=== PATIENT | female | born 1960 | race Caucasian/White ===

== ENCOUNTER 2018-05-14 09:00 | Inpatient (IN) | payer OTHER ==
[2018-05-14 10:08] VITALS: BMI 29.6
--- NOTE | 2018-05-14 10:19 | HP ---
CIWA Score Nausea/Vomitin Muscle Tremors: 2 Anxiety: 3 Agitation: 1-Slight > Activity Paroxysmal Sweats: 1-Minimal Palms Moist Orientation: 1-Uncertain about Date Tacttile Disturbances: 2-Mild Itch/Numbness/Burn Auditory Disturbances: 0-None Visual Disturbances: 0-None Headache: 1-Very Mild CIWA-Ar Total Score: 13 - Admission Criteria OASAS Guidelines: Admission for Medically Managed Detox: Requires at least one of the followin. CIWA greater than 12 2. Seizures within the past 24 hours 3. Delirium tremens within the past 24 hours 4. Hallucinations within the past 24 hours 5. Acute intervention needed for co occurring medical disorder 6. Acute intervention needed for co occurring psychiatric disorder 7. Severe withdrawal that cannot be handled at a lower level of care (continued vomiting, continued diarrhea, abnormal vital signs) requiring intravenous medication and/or fluids 8. Admission ROS [facility] Chief Complaint: WITHDRAWAL SYMPTOMS Allergies/Adverse Reactions: Allergies Allergy/AdvReac Type Severity Reaction Status Date / Time No Known Allergies Allergy Verified 05/14/18 10:16 History of Present Illness: 57 Y.O. WOMAN WITH AN EXTENSIVE HISTORY OF ALCOHOL DEPENDENCE IS HERE SEEKING DETOX. SHE REPORTS SHE COMPLETED DETOX ONE MONTH AGO AT [facility]. REPORTS HER LONG PERIOD OF SOBRIETY HAS BEEN 5 YEARS. SHE STATES SHE IS CURRENTLY ENROLLED AT [facility] AND WAS MEDICATED THRU 05/14/18 WITH 50MG OF METHADONE. Exam Limitations: No Limitations - Ebola screening Have you traveled outside of the country in the last 21 days: No (N) Have you had contact with anyone from an Ebola affected area: No Have you been sick,other than usual withdrawal symptoms: No Do you have a fever: No - Review of Systems Constitutional: Chills, Changes in sleep EENT: reports: Blurred Vision Respiratory: reports: Shortness of Breath Cardiac: reports: No Symptoms Reported GI: reports: Diarrhea : reports: No Symptoms Reported Musculoskeletal: reports: Back Pain, Joint Pain (Left hip pain) Integumentary: reports: No Symptoms Reported Neuro: reports: Numbness, Tingling, Tremors Endocrine: reports: No Symptoms Reported Hematology: reports: Anemia (BRAD) Psychiatric: reports: Anxious Other Systems: Reviewed and Negative Patient History - Patient Medical History Hx Anemia: Yes (BRAD) Hx Asthma: No Hx Chronic Obstructive Pulmonary Disease (COPD): No Hx Cancer: Yes (BREAST CA: IN REMISSION ) Hx Cardiac Disorders: No Hx Congestive Heart Failure: No Hx Hypertension: No Hx Hypercholesterolemia: No Hx Pacemaker: No HX Cerebrovascular Accident: No Hx Seizures: No Hx Dementia: No Hx Diabetes: No Hx Gastrointestinal Disorders: No Hx Liver Disease: Yes (Treated in 2017) Hx Genitourinary Disorders: No Hx Sexually Transmitted Disorders: No Hx Renal Disease (ESRD): No Hx Thyroid Disease: No Hx Human Immunodeficiency Virus (HIV): No (Negative ) Hx Hepatitis C: Yes (treated) Hx Depression: No Hx Suicide Attempt: No Hx Bipolar Disorder: No Hx Schizophrenia: No - Patient Surgical History Past Surgical History: Yes Hx Orthopedic Surgery: Yes (Right hip replacement: 2017) Other Surgical History: Lumpetocmy-2008 Anesthesia Reaction: No - PPD History Previous Implant?: Yes Documented Results: Negative w/o proof Implanted On Prior [facility] Admission?: Yes PPD to be Administered?: Yes - Reproductive History Patient is a Female of Child Bearing Age (11 -55 yrs old): No Last Menstrual Period: 05/14/08 Patient : No - Smoking Cessation Smoking history: Current every day smoker Have you smoked in the past 12 months: Yes Aproximately how many cigarettes per day: 4 Initiated information on smoking cessation: Yes 'Breaking Loose' booklet given: 05/14/18 - Substance & Tx. History Hx Alcohol Use: Yes Hx Substance Use: Yes Substance Use Type: Alcohol Hx Substance Use Treatment: Yes (Detox: 1 month ago ) - Substances Abused Alcohol Route: Oral Frequency: Daily Amount used: 2 pints daily Age of first use: 21 Date of Last Use: 05/13/18 Family Disease History - Family Disease History Family Disease History: CA: Mother (Uterine Ca- ) Admission Physical Exam [facility] - Vital Signs Vital Signs: Vital Signs - 24 hr 05/14/18 10:03 Temperature 97.4 F L Pulse Rate 92 H Respiratory 20 Rate Blood Pressure 148/86 - Physical General Appearance: Yes: No Apparent Distress, Nourished, Appropriately Dressed , Other (WEARS A WIG) HEENTM: Yes: Hearing grossly Normal, Normal ENT Inspection, Normocephalic, Normal Voice Respiratory: Yes: Chest Non-Tender, No Respiratory Distress, No Accessory Muscle Use, Wheezing Neck: Yes: No masses,lesions,Nodules, Trachea in good position Breast: Yes: Breast Exam Deferred Cardiology: Yes: Regular Rhythm, Regular Rate Abdominal: Yes: Normal Bowel Sounds, Non Tender Genitourinary: Yes: Other (NO complaints reported) Back: Yes: Normal Inspection Musculoskeletal: Yes: Other (USES A CANE TO AMBULATE) Extremities: Yes: Normal Capillary Refill, Normal Inspection, Normal Range of Motion, Non-Tender Neurological: Yes: Fully Oriented, Alert, Normal Mood/Affect, Normal Response Integumentary: Yes: Normal Color, Dry, Warm Lymphatic: Yes: Within Normal Limits - Diagnostic (1) Alcohol dependence with uncomplicated withdrawal Current Visit: Yes Status: Chronic (2) Opioid dependence on agonist therapy Current Visit: Yes Status: Chronic (3) Osteoporosis Current Visit: Yes Status: Chronic (4) Osteoarthritis Current Visit: Yes Status: Chronic (5) Unsteady gait Current Visit: Yes Status: Chronic (6) Neuropathy Current Visit: Yes Status: Chronic (7) Muscle cramps Current Visit: Yes Status: Chronic (8) Breast cancer, right breast Current Visit: Yes Status: Resolved (9) Alopecia Current Visit: Yes Status: Chronic (10) Iron deficiency anemia Current Visit: Yes Status: Chronic (11) Nicotine dependence Current Visit: Yes Status: Chronic (12) Status post hip replacement Current Visit: Yes Status: Resolved Qualifiers: Laterality: left Qualified Code(s): Z96.642 - Presence of left artificial hip joint Comment: REPORTS SHE IS AWAITING RIGHT HIP REPLACEMENT SX Cleared for Admission [facility] - Detox or Rehab [facility] Level of Care: Medically Managed Detox Regimen/Protocol: Librium [facility] Breath Alcohol Content Breath Alcohol Content: 0 Urine Pregancy Test - Result Urine Test Results: Negative- NO Line Present Urine Drug Screen - Results Drug Screen Negative: No Urine Drug Screen Results: OPI-Opiates, MTD-Methadone
[2018-05-14] MEDS ORDERED: P-EPHED 60MG/TRIPROLIDI 2.5MG TABLET PO PRN (10:46)
[2018-05-14] MEDS ORDERED: guaiFENesin/D-METHORPHAN HB 10 ML UNIT-DOSE CUPS PO PRN (10:46)
[2018-05-14] MEDS ORDERED: LOPERAMIDE HCL 2 MG CAPSULE PO PRN (10:46)
[2018-05-14] MEDS ORDERED: MAGNESIUM HYDROX 2400MG/30ML ORAL SUSPENSION 30 ML CUP PO PRN (10:46)
[2018-05-14] MEDS ORDERED: MENTHOL/PHENOL 1 EACH UD MM PRN (10:46)
[2018-05-14] MEDS ORDERED: ACETAMINOPHEN 325 MG TABLET (FP) PO PRN (10:46)
[2018-05-14] MEDS ORDERED: MAG HYDROX/AL HYDROX/SIMETH 30 ML UNIT-DOSE CUP PO PRN (10:46)
[2018-05-14] MEDS ORDERED: MAGNESIUM CITRATE 300 ML BOTTLE PO PRN (10:46)
[2018-05-14] MEDS: chlordiazePOXIDE HCL 25 MG CAPSULE PO PRN (13:12)
[2018-05-14] MEDS: chlordiazePOXIDE HCL 25 MG CAPSULE PO SCH ×2 (17:15→22:11)
[2018-05-14] MEDS: THIAMINE HCL 100 MG TABLET (FP) PO SCH (22:11)
[2018-05-14] MEDS: NICOTINE POLACRILEX 2 MG GUM BUC PRN (22:12)
[2018-05-14] MEDS: MELATONIN 5 MG TABLETS PO PRN (23:32)
[2018-05-15] MEDS: chlordiazePOXIDE HCL 25 MG CAPSULE PO SCH ×4 (05:59→22:07)
[2018-05-15] MEDS: NICOTINE POLACRILEX 2 MG GUM BUC PRN ×3 (06:45→14:48)
[2018-05-15] MEDS ORDERED: METHADONE HCL 10 MG TABLET PO ONE (08:32)
[2018-05-15] MEDS ORDERED: METHADONE HCL 40 MG DISPERSABLE TABLET ONE (08:41)
[2018-05-15] MEDS ORDERED: METHADONE HCL 10 MG TABLET ONE (08:41)
[2018-05-15] MEDS ORDERED: METHADONE 40 MG, METHADONE 10 MG PO ONE (08:45)
[2018-05-15] MEDS ORDERED: TRIMETHOBENZAMIDE HCL 300 MG CAPSULE PO PRN (10:09)
--- NOTE | 2018-05-15 10:12 | PN ---
S CIWA - CIWA Score Nausea/Vomitin-No Nausea/No Vomiting Muscle Tremors: 4-Moderate,w/Arms Extend Anxiety: 3 Agitation: 3 Paroxysmal Sweats: 3 Orientation: 0-Oriented Tacttile Disturbances: 0-None Auditory Disturbances: 0-None Visual Disturbances: 0-None Headache: 1-Very Mild CIWA-Ar Total Score: 14 S Progress Note (SOAP) Subjective: nausea/vomiting sweats shakes interrupted sleep tired Objective: 05/15/18 10:11 Vital Signs Temperature 97.1 F L 05/15/18 09:53 Pulse Rate 87 05/15/18 09:53 Respiratory Rate 16 05/15/18 09:53 Blood Pressure 108/55 L 05/15/18 09:53 O2 Sat by Pulse Oximetry (%) labs pending aaox3 lying in bed no acute distress Assessment: 05/15/18 10:11 withdrawal sx Plan: continue detox increase fluids labs pending tigan po prn
[2018-05-15] MEDS: PRENATAL VITAMINS W/ FOLIC ACID TABLET (FP) PO SCH (10:33)
[2018-05-15 11:02] LABS: HEMATOCRIT 27.8 % (32.4-45.2); HEMOGLOBIN 8.8 GM/dL (10.7-15.3); MCH 26.3 pg (25.7-33.7); MCHC 31.7 g/dl (32.0-36.0); MEAN PLT VOLUME 9.3 fl (7.5-11.1); PLATELET COUNT 125 K/MM3 (134-434); RBC 3.35 M/mm3 (3.60-5.2); RDW 20.4 % (11.6-15.6); WHITE BLOOD COUNT 4.3 K/mm3 (4.0-10.0)
[2018-05-15 11:21] LABS: ALK PHOS 138 U/L (45-117); ANION GAP 9 MMOL/L (8-16); BILIRUBIN,TOTAL 0.6 mg/dL (0.2-1); BLOOD UREA NITROGEN 8 mg/dL (7-18); CALCIUM 8.5 mg/dL (8.5-10.1); CHLORIDE 100 mmol/L (98-107); CO2 29 mmol/L (21-32); CREATININE 0.6 mg/dL (0.55-1.3); GLUCOSE,RANDOM 172 mg/dL (74-106); POTASSIUM 3.8 mmol/L (3.5-5.1); SGOT/AST 70 U/L (15-37); SGPT/ALT 33 U/L (13-61); SODIUM 138 mmol/L (136-145); TOT PROT 7.6 g/dl (6.4-8.2)
[2018-05-15] MEDS: chlordiazePOXIDE HCL 25 MG CAPSULE PO PRN (14:48)
--- NOTE | 2018-05-15 17:04 | EKG ---
Test Reason : Blood Pressure : / mmHG Vent. Rate : 089 BPM Atrial Rate : 089 BPM P-R Int : 148 ms QRS Dur : 088 ms QT Int : 406 ms P-R-T Axes : 052 058 038 degrees QTc Int : 493 ms NORMAL SINUS RHYTHM LEFT ATRIAL ENLARGEMENT NONSPECIFIC ST ABNORMALITY PROLONGED QT ABNORMAL ECG NO PREVIOUS ECGS AVAILABLE Confirmed by MD DEISI, DARIN ([id number]) on 05/15/2018 5:04:16 PM Referred By: Confirmed By:DARIN LIPSCOMB MD
[2018-05-15] MEDS: THIAMINE HCL 100 MG TABLET (FP) PO SCH (22:07)
[2018-05-15] MEDS: hydrOXYzine PAMOATE 50 MG CAPSULE (FP) PO PRN (22:07)
[2018-05-15] MEDS: MELATONIN 5 MG TABLETS PO PRN (22:08)
[2018-05-16] MEDS ORDERED: METHADONE HCL 10 MG TABLET ONE (04:17)
[2018-05-16] MEDS ORDERED: METHADONE HCL 40 MG DISPERSABLE TABLET ONE (04:17)
[2018-05-16] MEDS ORDERED: METHADONE HCL 40 MG DISPERSABLE TABLET PO SCH (06:00)
[2018-05-16] MEDS: chlordiazePOXIDE HCL 25 MG CAPSULE PO SCH ×2 (06:57→10:49)
[2018-05-16] MEDS: METHADONE 40 MG, METHADONE 10 MG PO SCH (06:57)
[2018-05-16] MEDS: NICOTINE POLACRILEX 2 MG GUM BUC PRN ×4 (07:00→20:36)
--- NOTE | 2018-05-16 10:00 | EKG ---
Test Reason : Blood Pressure : / mmHG Vent. Rate : 085 BPM Atrial Rate : 085 BPM P-R Int : 154 ms QRS Dur : 088 ms QT Int : 418 ms P-R-T Axes : 058 051 049 degrees QTc Int : 497 ms NORMAL SINUS RHYTHM PROLONGED QT ABNORMAL ECG WHEN COMPARED WITH ECG OF 14-MAY-2018 11:57, NO SIGNIFICANT CHANGE WAS FOUND Confirmed by CASSIDY MARTIN, DANE ([id number]) on 05/16/2018 9:59:51 AM Referred By: Confirmed By:DANE BENJAMIN MD
--- NOTE | 2018-05-16 10:25 | PN ---
S CIWA - CIWA Score Nausea/Vomitin-No Nausea/No Vomiting Muscle Tremors: 3 Anxiety: 3 Agitation: 3 Paroxysmal Sweats: 3 Orientation: 0-Oriented Tacttile Disturbances: 0-None Auditory Disturbances: 0-None Visual Disturbances: 0-None Headache: 0-None Present CIWA-Ar Total Score: 12 S Progress Note (SOAP) Subjective: agitation sweats shakes interrupted sleep Objective: 05/16/18 10:24 Vital Signs Temperature 98.2 F 05/16/18 09:26 Pulse Rate 91 H 05/16/18 09:26 Respiratory Rate 16 05/16/18 09:26 Blood Pressure 105/66 05/16/18 09:26 O2 Sat by Pulse Oximetry (%) Laboratory Tests 05/15/18 05/15/18 05/15/18 07:00 07:00 07:00 WBC 4.3 RBC 3.35 L Hgb 8.8 L Hct 27.8 L MCV 83.0 MCH 26.3 MCHC 31.7 L RDW 20.4 H Plt Count 125 L MPV 9.3 Sodium 138 Potassium 3.8 Chloride 100 Carbon Dioxide 29 Anion Gap 9 BUN 8 Creatinine 0.6 Creat Clearance w eGFR > 60 Random Glucose 172 H Calcium 8.5 Total Bilirubin 0.6 AST 70 H ALT 33 Alkaline Phosphatase 138 H Total Protein 7.6 Albumin 3.0 L RPR Titer Nonreactive aaox3 ambulating no acute distress Assessment: 05/16/18 10:24 withdrawal sx Plan: continue detox increase fluids
[2018-05-16] MEDS: PRENATAL VITAMINS W/ FOLIC ACID TABLET (FP) PO SCH (10:49)
--- NOTE | 2018-05-16 16:01 | PN ---
S Progress Note Note: pt had a glucose lab result of 172, BGM AC x one ordered and random glucose for 6am ordered for tomorrow. Pt denies of having diabetes or family h/o of diabetes. will follow up with result.
[2018-05-16] MEDS: chlordiazePOXIDE 5 MG CAPSULE PO SCH ×2 (16:57→22:04)
[2018-05-16] MEDS: THIAMINE HCL 100 MG TABLET (FP) PO SCH (22:03)
[2018-05-16] MEDS: IBUPROFEN 400 MG TABLET (FP) PO PRN (22:03)
[2018-05-16] MEDS: MELATONIN 5 MG TABLETS PO PRN (22:04)
[2018-05-16] MEDS: hydrOXYzine PAMOATE 50 MG CAPSULE (FP) PO PRN (22:04)
[2018-05-17] MEDS ORDERED: METHADONE HCL 40 MG DISPERSABLE TABLET ONE (06:13)
[2018-05-17] MEDS ORDERED: METHADONE HCL 10 MG TABLET ONE (06:13)
[2018-05-17] MEDS: METHADONE 40 MG, METHADONE 10 MG PO SCH (06:14)
[2018-05-17] MEDS: chlordiazePOXIDE 5 MG CAPSULE PO SCH ×2 (06:14→10:10)
[2018-05-17] MEDS: NICOTINE POLACRILEX 2 MG GUM BUC PRN ×3 (06:18→17:16)
[2018-05-17] MEDS: PRENATAL VITAMINS W/ FOLIC ACID TABLET (FP) PO SCH (10:10)
--- NOTE | 2018-05-17 11:04 | PN ---
[facility] Progress Note (SOAP) Subjective: feeling better little sweats Objective: 05/17/18 11:03 Vital Signs Temperature 97.7 F 05/17/18 09:16 Pulse Rate 104 H 05/17/18 09:16 Respiratory Rate 18 05/17/18 09:16 Blood Pressure 98/60 05/17/18 09:16 O2 Sat by Pulse Oximetry (%) aaox3 ambulating no acute distress Assessment: 05/17/18 11:03 mild withdrawal sx Plan: continue detox increase fluids d/c in am
--- NOTE | 2018-05-17 11:16 | PN ---
S Progress Note Note: random glucose result is 167. pt denies having diabetes or having a family history of diabetes. Pt was advised to change her diet and try less sugar or eating products with low sugar content, low carbs, increase water intake. pt in agreement.
[2018-05-17] MEDS: chlordiazePOXIDE HCL 10 MG CAPSULE PO SCH ×2 (17:13→22:14)
[2018-05-17] MEDS: THIAMINE HCL 100 MG TABLET (FP) PO SCH (22:14)
[2018-05-17] MEDS: hydrOXYzine PAMOATE 50 MG CAPSULE (FP) PO PRN (22:14)
[2018-05-17] MEDS: IBUPROFEN 400 MG TABLET (FP) PO PRN (22:15)
[2018-05-17] MEDS: MELATONIN 5 MG TABLETS PO PRN (22:15)
[2018-05-18] MEDS ORDERED: METHADONE HCL 10 MG TABLET ONE (04:43)
[2018-05-18] MEDS ORDERED: METHADONE HCL 40 MG DISPERSABLE TABLET ONE (04:43)
[2018-05-18] MEDS: chlordiazePOXIDE HCL 10 MG CAPSULE PO SCH (05:40)
[2018-05-18] MEDS: METHADONE 40 MG, METHADONE 10 MG PO SCH (05:41)
[2018-05-18 06:18] VITALS: BP 114/69; PULSE 95; TEMP 98.1
--- NOTE | 2018-05-18 09:43 | DS ---
[facility] Detox Discharge Summary Admission Date: 05/14/18 Discharge Date: 05/18/18 - History Present History: Alcohol Dependence - Physical Exam Results Vital Signs: Vital Signs Temperature 98.1 F 05/18/18 06:00 Pulse Rate 95 H 05/18/18 06:00 Respiratory Rate 18 05/18/18 06:00 Blood Pressure 114/69 05/18/18 06:00 O2 Sat by Pulse Oximetry (%) - Treatment Hospital Course: Detox Protocol Followed, Detoxed Safely, Responded well, Discharged Condition Good, Rehab Referral Accepted - Medication Discharge Medications: Ambulatory Orders NK [No Known Home Medication] 05/14/18 - Diagnosis (1) Alcohol dependence with uncomplicated withdrawal Status: Chronic (2) Alopecia Status: Chronic (3) Iron deficiency anemia Status: Chronic (4) Muscle cramps Status: Chronic (5) Neuropathy Status: Chronic (6) Nicotine dependence Status: Chronic (7) Opioid dependence on agonist therapy Status: Chronic (8) Osteoarthritis Status: Chronic (9) Osteoporosis Status: Chronic (10) Unsteady gait Status: Chronic (11) Breast cancer, right breast Status: Resolved (12) Status post hip replacement Status: Resolved Qualifiers: Laterality: left Qualified Code(s): Z96.642 - Presence of left artificial hip joint - AMA Did Patient Leave Against Medical Advice: No (declined rehab/outpatient rehab)
== END 2018-05-18 09:30 | disposition home or self-care (01) | DRG 773 ==
LOC: YASAS 09:00 → Y6N 11:22
PROVIDERS: ADMIT Neuromusculoskeletal Medicine & OMM; ATTEND Neuromusculoskeletal Medicine & OMM
PROC: HZ2ZZZZ Detoxification Services for Substance Abuse Treatment (ICD-10-PCS; principal; 2018-05-14)
DX: F10.230 Alcohol dependence with withdrawal, uncomplicated (principal); F11.20 Opioid dependence, uncomplicated; F17.210 Nicotine dependence, cigarettes, uncomplicated; D50.9 Iron deficiency anemia, unspecified; L65.9 Nonscarring hair loss, unspecified; G62.9 Polyneuropathy, unspecified; M19.90 Unspecified osteoarthritis, unspecified site; M81.0 Age-related osteoporosis without current pathological fracture; R25.2 Cramp and spasm; Z85.3 Personal history of malignant neoplasm of breast; Z96.642 Presence of left artificial hip joint; R26.81 Unsteadiness on feet
CPT/HCPCS: 36415; 80053; 82947; 82962; 85027; 86593; 93005; 93010

== ENCOUNTER 2019-02-08 15:26 | Inpatient (IN) | payer OTHER ==
[2019-02-08 18:45] VITALS: BMI 27.1
--- NOTE | 2019-02-08 20:42 | HP ---
COWS - Scale Resting Pulse: 1= [place] 81-100 Sweatin= No chills or Flushing Restless Observation: 1= Difficult to Sit Still Pupil Size: 0= Normal to Room Light Bone or Joint Aches: 4=Acute Joint/Muscle Pain Runny Nose/ Eye Tearin= None GI Upset > 30mins: 1= Stomach Cramp Tremor Observation: 0= None Yawning Observation: 0= None Anxiety or Irritability: 2=Irritable/Anxious Goose Flesh Skin: 0=Smooth Skin COWS Score: 9 CIWA Score Nausea/Vomitin-No Nausea/No Vomiting Muscle Tremors: None Anxiety: 4-Mod. Anxious/Guarded Agitation: 4-Moderately Restless Paroxysmal Sweats: No Perspiration Orientation: 1-Uncertain about Date Tacttile Disturbances: 0-None Auditory Disturbances: 0-None Visual Disturbances: 0-None Headache: 4-Moderately Severe CIWA-Ar Total Score: 13 - Admission Criteria OASAS Guidelines: Admission for Medically Managed Detox: Requires at least one of the followin. CIWA greater than 12 2. Seizures within the past 24 hours 3. Delirium tremens within the past 24 hours 4. Hallucinations within the past 24 hours 5. Acute intervention needed for co occurring medical disorder 6. Acute intervention needed for co occurring psychiatric disorder 7. Severe withdrawal that cannot be handled at a lower level of care (continued vomiting, continued diarrhea, abnormal vital signs) requiring intravenous medication and/or fluids 8. Patient presents the following: CIWA greater than 12 Admission Criteria Met: Admission criteria met Admitting History and Physical - Past Medical History ...LMP: 05/14/08 - Smoking History Smoking history: Current every day smoker Have you smoked in the past 12 months: Yes Aproximately how many cigarettes per day: 4 - Alcohol/Substance Use Hx Alcohol Use: Yes Admission ROS [facility] Chief Complaint: seeking detox from heroin and alcohol Allergies/Adverse Reactions: Allergies Allergy/AdvReac Type Severity Reaction Status Date / Time No Known Allergies Allergy Verified 02/08/19 18:36 History of Present Illness: HERE FOR ALCOHOL /HERION DETOX. CLIENT IS SELF REFERRED. SHE IS KNOWN TO THE PROGRAM. LAST HERE 04/2018. PRESENTS TODAY WITH C/O WITHDRAWAL SX'S. CLIENT REPORTS DAILY USE OF ALCOHOL AND REPORTS USING HERION APPROX 4X A WEEK. LAST USE OF HEROIN 2 DAYS AGO. LAST ALCOHOL INTAKE LAST NIGHT. HX/O MMTP BUT NO LONGER ENROLLED. DENIES IVDU, BLACKOUTS, SEIZURES, SI/HI/AVH. REPORTS LONGEST CLEAN TIME 10 YEARS. DENIES ANY SIGNIFICANT CLEAR TIME THIS PAST YEAR. LIVES ALONE, UNEMPLOYED-[employer], DENIES LEGALS Exam Limitations: Physical Impairment (AMBULATES WITH ROLLING WALKER) - Ebola screening Have you traveled outside of the country in the last 21 days: No Have you had contact with anyone from an Ebola affected area: No Have you been sick,other than usual withdrawal symptoms: No Do you have a fever: No - Review of Systems Constitutional: Malaise EENT: reports: Blurred Vision (WEARS GLASSES), Dental Problems (MISSING TEETH) Respiratory: reports: No Symptoms reported Cardiac: reports: No Symptoms Reported GI: reports: Poor Fluid Intake : reports: No Symptoms Reported Musculoskeletal: reports: Back Pain (CHRONIC), Joint Pain (LEFT HIP -CHRONIC) Integumentary: reports: No Symptoms Reported Neuro: reports: Headache, Unsteady Gait (AMBUALTES WITH ROLLING WALKER) Endocrine: reports: No Symptoms Reported Hematology: reports: Anemia Psychiatric: reports: Anxious Other Systems: Reviewed and Negative Patient History - Patient Medical History Hx Anemia: Yes (BRAD) Hx Asthma: No Hx Chronic Obstructive Pulmonary Disease (COPD): No Hx Cancer: Yes (BREAST CA: IN REMISSION ) Hx Cardiac Disorders: No Hx Congestive Heart Failure: No Hx Hypertension: No Hx Hypercholesterolemia: No Hx Pacemaker: No HX Cerebrovascular Accident: No Hx Seizures: No Hx Dementia: No Hx Diabetes: No Hx Gastrointestinal Disorders: No Hx Liver Disease: Yes (Treated in 2017) Hx Genitourinary Disorders: No Hx Sexually Transmitted Disorders: No Hx Renal Disease (ESRD): No Hx Thyroid Disease: No Hx Human Immunodeficiency Virus (HIV): No Hx Hepatitis C: Yes (treated) Hx Depression: No Hx Suicide Attempt: No Hx Bipolar Disorder: No Hx Schizophrenia: No Other Medical History: ANXIETY - Patient Surgical History Past Surgical History: Yes Hx Neurologic Surgery: No Hx Cataract Extraction: No Hx Cardiac Surgery: No Hx Lung Surgery: No Hx Breast Surgery: Yes (RIGHT BREAST CA, SURGERY X3) Hx Breast Biopsy: No Hx Abdominal Surgery: No Hx Appendectomy: No Hx Cholecystectomy: No Hx Genitourinary Surgery: No Hx Section: No Hx Orthopedic Surgery: Yes (Right hip replacement: 2017) Other Surgical History: Lumpetocmy-2009 Anesthesia Reaction: No - PPD History Previous Implant?: Yes Documented Results: Negative w/proof Implanted On Prior [facility] Admission?: Yes Date: 05/16/18 Results: 0MM PPD to be Administered?: No - Reproductive History Patient is a Female of Child Bearing Age (11 -55 yrs old): Yes Last Menstrual Period: 05/14/08 LMP comment: MENAPAUSE Patient : No - Smoking Cessation Smoking history: Current every day smoker Have you smoked in the past 12 months: Yes Aproximately how many cigarettes per day: 10 Cigars Per Day: 0 Hx Chewing Tobacco Use: No Initiated information on smoking cessation: Yes 'Breaking Loose' booklet given: 02/08/19 - Substance & Tx. History Hx Alcohol Use: Yes Hx Substance Use: Yes Substance Use Type: Alcohol, Heroin Hx Substance Use Treatment: Yes ([facility]) - Substances abused Alcohol Substance route: Oral Frequency: Daily Amount used: 1 pint Age of first use: 21 Date of last use: 02/08/19 Heroin Substance route: Inhalation Frequency: 3-6 times per week Amount used: 1 bag Age of first use: 58 Date of last use: 02/06/19 Admission Physical Exam S - Vital Signs Vital Signs: Vital Signs - 24 hr 02/08/19 18:35 Temperature 98.2 F Pulse Rate 85 Respiratory 16 Rate Blood Pressure 155/87 - Physical General Appearance: Yes: Mild Distress, Anxious HEENTM: Yes: EOMI, Normocephalic, Normal Voice, BRADEN, Pharynx Normal, Other ( MISSING TEETH) Respiratory: Yes: Chest Non-Tender, Lungs Clear, Normal Breath Sounds, No Respiratory Distress, No Accessory Muscle Use Neck: Yes: No masses,lesions,Nodules, Supple, Trachea in good position Breast: Yes: Other, Surgical Scar (RIGHT BREAST) Cardiology: Yes: Regular Rhythm, Regular Rate, S1, S2 Abdominal: Yes: Normal Bowel Sounds, Non Tender, Soft, Protuberent Genitourinary: Yes: Within Normal Limits Back: Yes: Normal Inspection Musculoskeletal: Yes: Other (AMBULATES W/ ROLLING WALKER) Extremities: Yes: Normal Range of Motion, Non-Tender Neurological: Yes: Fully Oriented, Alert, Motor Strength 5/5 Integumentary: Yes: Dry, Warm, Other (SPIDER DICK LIKE BROKEN VESSELS TO ARMS AND CHEST) Lymphatic: Yes: Within Normal Limits - Diagnostic (1) Opioid dependence with withdrawal Current Visit: Yes Status: Acute (2) Alcohol dependence with uncomplicated withdrawal Current Visit: Yes Status: Acute (3) Iron deficiency anemia Current Visit: Yes Status: Chronic (4) Neuropathy Current Visit: Yes Status: Chronic (5) Nicotine dependence Current Visit: Yes Status: Chronic Qualifiers: Nicotine product type: cigarettes Substance use status: uncomplicated Qualified Code(s): F17.210 - Nicotine dependence, cigarettes, uncomplicated (6) Osteoarthritis Current Visit: Yes Status: Chronic (7) Osteoporosis Current Visit: Yes Status: Chronic (8) Unsteady gait Current Visit: Yes Status: Chronic Cleared for Admission S - Detox or Rehab [facility] Level of Care: Medically Managed Detox Regimen/Protocol: Methadone/Librium Claeared for Rehab Admission: No Breathalyzer - Breathalyzer Breathalyzer: 0 Urine Drug Screen - Test Device Lot number: [id number] Expiration date: 09/21/20 - Control Is test valid?: Yes - Results Drug screen NEGATIVE: Yes Urine drug screen results: MOP-Opiates Inpatient Rehab Admission - Rehab Decision to Admit Inpatient rehab admission?: No
[2019-02-08] MEDS ORDERED: IBUPROFEN 400 MG TABLET (FP) PO PRN (20:46)
[2019-02-08] MEDS ORDERED: MENTHOL/PHENOL 1 EACH UD MM PRN (20:46)
[2019-02-08] MEDS ORDERED: guaiFENesin 200 MG/10 ML 10 ML UNIT-DOSE CUPS PO PRN (20:46)
[2019-02-08] MEDS ORDERED: P-EPHED 60MG/TRIPROLIDI 2.5MG TABLET PO PRN (20:46)
[2019-02-08] MEDS ORDERED: NALOXONE HCL 0.4 MG/ML VIAL IM PRN (20:46)
[2019-02-08] MEDS ORDERED: cloNIDine HCL 0.1 MG TABLET PO PRN (20:46)
[2019-02-08] MEDS ORDERED: MAGNESIUM HYDROX 2400MG/30ML ORAL SUSPENSION 30 ML CUP PO PRN (20:46)
[2019-02-08] MEDS ORDERED: BISMUTH SUBSALICYLATE 524 MG/30 ML UD PO PRN (20:46)
[2019-02-08] MEDS ORDERED: MAGNESIUM CITRATE 300 ML BOTTLE PO PRN (20:46)
[2019-02-08] MEDS ORDERED: ONDANSETRON *ODT* 4 MG TABLET SL PRN (20:46)
[2019-02-08] MEDS ORDERED: METHADONE HCL 10 MG TABLET (FOR DETOX USE ONLY) PO ONE (20:46)
[2019-02-08] MEDS ORDERED: ACETAMINOPHEN 325 MG TABLET (FP) PO PRN (20:46)
[2019-02-08] MEDS ORDERED: chlordiazePOXIDE HCL 25 MG CAPSULE PO PRN (20:46)
[2019-02-08] MEDS ORDERED: DICYCLOMINE HCL 10 MG CAPSULE PO PRN (20:46)
[2019-02-08] MEDS ORDERED: MAG HYDROX/AL HYDROX/SIMETH 30 ML UNIT-DOSE CUP PO PRN (20:46)
[2019-02-08] MEDS: FERROUS SO4 325 MG TABLET (FP) PO SCH (22:24)
[2019-02-08] MEDS: chlordiazePOXIDE HCL 25 MG CAPSULE PO SCH (22:24)
[2019-02-08] MEDS: MELATONIN 5 MG TABLETS PO PRN (22:24)
[2019-02-08] MEDS: THIAMINE HCL 100 MG TABLET (FP) PO SCH (22:25)
[2019-02-09] MEDS: ACETAMINOPHEN 325 MG TABLET (FP) PO PRN (00:48)
[2019-02-09] MEDS: METHOCARBAMOL 500 MG TABLET PO PRN ×3 (00:49→22:12)
[2019-02-09] MEDS: FERROUS SO4 325 MG TABLET (FP) PO SCH ×3 (05:57→22:10)
[2019-02-09] MEDS: chlordiazePOXIDE HCL 25 MG CAPSULE PO SCH ×4 (05:57→22:10)
[2019-02-09] MEDS: NICOTINE POLACRILEX 2 MG GUM BUC PRN ×2 (05:58→17:28)
[2019-02-09] MEDS ORDERED: METHADONE HCL 5 MG TABLET (FOR DETOX USE ONLY) PO ONE (10:00)
[2019-02-09 10:10] LABS: ALBUMIN 3.1 g/dl (3.4-5.0); BILIRUBIN,TOTAL 0.7 mg/dL (0.2-1); BLOOD UREA NITROGEN 8.1 mg/dL (7-18); CREATININE 0.6 mg/dL (0.55-1.3); POTASSIUM 3.5 mmol/L (3.5-5.1); TOT PROT 8.2 g/dl (6.4-8.2)
[2019-02-09] MEDS: PRENATAL VITAMINS W/ FOLIC ACID TABLET (FP) PO SCH (10:10)
[2019-02-09] MEDS: NICOTINE 14 MG/24 HOURS TOPICAL PATCH TD SCH (10:10)
[2019-02-09 10:38] LABS: MCH 31.2 pg (25.7-33.7); MCHC 33.5 g/dl (32.0-36.0); MEAN CELL VOLUME 93.1 fl (80-96); MEAN PLT VOLUME 10.3 fl (7.5-11.1); PLATELET COUNT 115 K/MM3 (134-434); RBC 3.86 M/mm3 (3.60-5.2); RDW 20.1 % (11.6-15.6); WHITE BLOOD COUNT 5.1 K/mm3 (4.0-10.0)
--- NOTE | 2019-02-09 12:39 | PN ---
S CIWA - CIWA Score Nausea/Vomitin-No Nausea/No Vomiting Muscle Tremors: 2 Anxiety: 3 Agitation: 0-Normal Activity Paroxysmal Sweats: 3 Orientation: 0-Oriented Tacttile Disturbances: 1-Very Mild Itch/Numbness Auditory Disturbances: 0-None Visual Disturbances: 0-None Headache: 2-Mild CIWA-Ar Total Score: 11 S COWS - Scale Resting Pulse: 0= [place] 80 or Below Sweatin= Chills/Flushing Restless Observation: 1= Difficult to Sit Still Pupil Size: 0= Normal to Room Light Bone or Joint Aches: 1= Mild Discomfort Runny Nose/ Eye Tearin= None GI Upset > 30mins: 0= None Tremor Observation of Outstretched Hands: 2= Slight Tremor Visible Yawning Observation: 1= 1-2x During Session Anxiety or Irritability: 2=Irritable/Anxious Goose Flesh Skin: 0=Smooth Skin COWS Score: 8 S Progress Note (SOAP) Subjective: c/o joint pain, anxiety, sweats, and irritability. Objective: 02/09/19 12:36 Vital Signs 02/09/19 02/09/19 02/09/19 06:00 09:47 12:34 Temperature 98.2 F 97.7 F 97.9 F Pulse Rate 84 77 90 Respiratory 18 18 18 Rate Blood Pressure 122/81 111/65 133/87 Lab Results WBC 5.1 K/mm3 (4.0-10.0) 02/09/19 08:00 RBC 3.86 M/mm3 (3.60-5.2) 02/09/19 08:00 Hgb 12.0 GM/dL (10.7-15.3) 02/09/19 08:00 Hct 36.0 % (32.4-45.2) D 02/09/19 08:00 MCV 93.1 fl (80-96) 02/09/19 08:00 MCHC 33.5 g/dl (32.0-36.0) 02/09/19 08:00 RDW 20.1 % (11.6-15.6) H 02/09/19 08:00 Plt Count 115 K/MM3 (134-434) L 02/09/19 08:00 Sodium 138 mmol/L (136-145) 02/09/19 08:00 Potassium 3.5 mmol/L (3.5-5.1) 02/09/19 08:00 Chloride 101 mmol/L (98-107) 02/09/19 08:00 Carbon Dioxide 30 mmol/L (21-32) 02/09/19 08:00 Anion Gap 7 MMOL/L (8-16) L 02/09/19 08:00 BUN 8.1 mg/dL (7-18) 02/09/19 08:00 Creatinine 0.6 mg/dL (0.55-1.3) 02/09/19 08:00 Random Glucose 150 mg/dL (74-106) H 02/09/19 08:00 Calcium 9.0 mg/dL (8.5-10.1) 02/09/19 08:00 Laboratory Last Values WBC 5.1 K/mm3 (4.0-10.0) 02/09/19 08:00 RBC 3.86 M/mm3 (3.60-5.2) 02/09/19 08:00 Hgb 12.0 GM/dL (10.7-15.3) 02/09/19 08:00 Hct 36.0 % (32.4-45.2) D 02/09/19 08:00 MCV 93.1 fl (80-96) 02/09/19 08:00 MCH 31.2 pg (25.7-33.7) D 02/09/19 08:00 MCHC 33.5 g/dl (32.0-36.0) 02/09/19 08:00 RDW 20.1 % (11.6-15.6) H 02/09/19 08:00 Plt Count 115 K/MM3 (134-434) L 02/09/19 08:00 MPV 10.3 fl (7.5-11.1) D 02/09/19 08:00 Sodium 138 mmol/L (136-145) 02/09/19 08:00 Potassium 3.5 mmol/L (3.5-5.1) 02/09/19 08:00 Chloride 101 mmol/L (98-107) 02/09/19 08:00 Carbon Dioxide 30 mmol/L (21-32) 02/09/19 08:00 Anion Gap 7 MMOL/L (8-16) L 02/09/19 08:00 BUN 8.1 mg/dL (7-18) 02/09/19 08:00 Creatinine 0.6 mg/dL (0.55-1.3) 02/09/19 08:00 Est GFR (CKD-EPI)AfAm 117.27 02/09/19 08:00 Est GFR (CKD-EPI)NonAf 101.18 02/09/19 08:00 Random Glucose 150 mg/dL (74-106) H 02/09/19 08:00 Calcium 9.0 mg/dL (8.5-10.1) 02/09/19 08:00 Total Bilirubin 0.7 mg/dL (0.2-1) 02/09/19 08:00 AST 66 U/L (15-37) H 02/09/19 08:00 ALT 42 U/L (13-61) 02/09/19 08:00 Alkaline Phosphatase 173 U/L (45-117) H 02/09/19 08:00 Total Protein 8.2 g/dl (6.4-8.2) 02/09/19 08:00 Albumin 3.1 g/dl (3.4-5.0) L 02/09/19 08:00 RPR Titer Nonreactive (NONREACTIVE) 02/09/19 08:00 Labs noted with elevated Alkaline phosphatase possible due to chronic joint pain /history of CA. Assessment: 02/09/19 12:39 AOX3, in no acute respiratory distress. Full ROM, ambulating in the unit. Withdrawal symptoms. Plan: continue detox.
--- NOTE | 2019-02-09 14:57 | CONSULT ---
[facility] Psychiatric Consult - Data Date of interview: 02/09/19 Admission source: [facility] Identifying data: Readmission to [facility] for this 58 y/o female self -referred for detoxification. RHYS issues : lcohol, heroin, nicotine. Interviewed at [address] [place] [address]. 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 Substance Abuse History: Discussed with the patient. Patient confirms information detailed in current [facility] report as follows : Smoking history: Current every day smoker. Have you smoked in the past 12 months: Yes. Aproximately how many cigarettes per day: 10. Cigars Per Day: 0. Hx Chewing Tobacco Use: No. Initiated information on smoking cessation: Yes. 'Breaking Loose' booklet given: 02/08/19. - Substance & Tx. History. Hx Alcohol Use: Yes. Hx Substance Use: Yes. Substance Use Type: Alcohol, Heroin. Hx Substance Use Treatment: Yes ([facility]). - Substances abused. Alcohol. Substance route: Oral. Frequency: Daily. Amount used: 1 pint. Age of first use: 21. Date of last use: 02/08/19. Heroin. Substance route: Inhalation. Frequency: 3-6 times per week. Amount used: 1 bag. Age of first use: 58. Date of last use: 02/06/19 Medical History: Medical profile is remarkable for anemia, hepatitis C (treated) , breast cancer (lumpectomy) in remission, neuropathy, recent right hip replacement and osteoporosis. Psychiatric History: No reported history of psychiatric hospitalizations. Patient denies being prescribed any psychotropic medications. No current psychiatric OPD care. Ms Paredes denies history of suicide attempts. Physical/Sexual Abuse/Trauma History: Patient denies. Additional Comment: Urine drug screen results: MOP-Opiates. Noted. Mental Status Exam - Mental Status Exam Alert and Oriented to: Time, Place, Person Cognitive Function: Good Patient Appearance: Well Groomed Mood: Withdrawn Affect: Appropriate, Normal Range Patient Behavior: Fatigued, Appropriate, Cooperative Speech Pattern: Clear Voice Loudness: Normal Thought Process: Intact, Goal Oriented Thought Disorder: Not Present Hallucinations: Denies Suicidal Ideation: Denies Homicidal Ideation: Denies Insight/Judgement: Fair Sleep: Fair Appetite: Good Gait/Station: Other (not observed; in bed for duration of interview; noted walker at bedside) Psychiatric Findings - Problem List ([place] 1, 2,3) (1) Alcohol dependence with uncomplicated withdrawal Current Visit: Yes Status: Acute (2) Opioid dependence with withdrawal Current Visit: Yes Status: Acute (3) Nicotine dependence Current Visit: Yes Status: Chronic Qualifiers: Nicotine product type: cigarettes Substance use status: uncomplicated Qualified Code(s): F17.210 - Nicotine dependence, cigarettes, uncomplicated - Initial Treatment Plan Initial Treatment Plan: Psychoeducation and support. Sleep hygiene. Detoxification. AA/NA meetings. Observation.
[2019-02-09] MEDS: THIAMINE HCL 100 MG TABLET (FP) PO SCH (22:11)
[2019-02-09] MEDS: MELATONIN 5 MG TABLETS PO PRN (22:11)
[2019-02-10] MEDS: ACETAMINOPHEN 325 MG TABLET (FP) PO PRN ×2 (00:43→19:18)
[2019-02-10] MEDS: hydrOXYzine PAMOATE 25 MG CAPSULE (FP) PO PRN ×2 (00:43→23:09)
[2019-02-10] MEDS: chlordiazePOXIDE HCL 25 MG CAPSULE PO SCH ×4 (05:40→22:02)
[2019-02-10] MEDS: FERROUS SO4 325 MG TABLET (FP) PO SCH ×3 (05:40→21:39)
[2019-02-10] MEDS: NICOTINE POLACRILEX 2 MG GUM BUC PRN ×3 (06:29→22:02)
[2019-02-10] MEDS ORDERED: METHADONE HCL 10 MG TABLET (FOR DETOX USE ONLY) PO ONE (10:00)
[2019-02-10] MEDS: PRENATAL VITAMINS W/ FOLIC ACID TABLET (FP) PO SCH (10:11)
[2019-02-10] MEDS: NICOTINE 14 MG/24 HOURS TOPICAL PATCH TD SCH (10:11)
--- NOTE | 2019-02-10 16:25 | PN ---
[facility] CIWA - CIWA Score Nausea/Vomitin-Mild Nausea/No Vomiting Muscle Tremors: 2 Anxiety: 3 Agitation: 2 Paroxysmal Sweats: 2 Orientation: 0-Oriented Tacttile Disturbances: 0-None Auditory Disturbances: 0-None Visual Disturbances: 0-None Headache: 0-None Present CIWA-Ar Total Score: 10 S COWS - Scale Resting Pulse: 1= NV 81-100 Sweatin= Chills/Flushing Restless Observation: 0= Sits Still Pupil Size: 0= Normal to Room Light Bone or Joint Aches: 0= None Runny Nose/ Eye Tearin= None GI Upset > 30mins: 1= Stomach Cramp Tremor Observation of Outstretched Hands: 2= Slight Tremor Visible Yawning Observation: 0= None Anxiety or Irritability: 1=Feels Anxious/Irritable Goose Flesh Skin: 0=Smooth Skin COWS Score: 6 S Progress Note (SOAP) Subjective: Interrupted sleep, anxious. Patient encouraged to go to inpatient rehab but refused stating she has planned surgery on 02/20/19 for left hip replacement and that she couldn't do the surgery earlier because of her anemia but her anemia is now stable. Objective: 02/10/19 16:23 Last Vital Signs Temp Pulse Resp BP Pulse Ox 97.3 F L 84 18 111/76 02/10/19 14:39 02/10/19 14:39 02/10/19 14:39 02/10/19 14:39 Laboratory Tests 02/09/19 02/09/19 02/09/19 08:00 08:00 08:00 WBC 5.1 RBC 3.86 Hgb 12.0 Hct 36.0 D MCV 93.1 MCH 31.2 D MCHC 33.5 RDW 20.1 H Plt Count 115 L MPV 10.3 D Sodium 138 Potassium 3.5 Chloride 101 Carbon Dioxide 30 Anion Gap 7 L BUN 8.1 Creatinine 0.6 Est GFR (CKD-EPI)AfAm 117.27 Est GFR (CKD-EPI)NonAf 101.18 Random Glucose 150 H Calcium 9.0 Total Bilirubin 0.7 AST 66 H ALT 42 Alkaline Phosphatase 173 H Total Protein 8.2 Albumin 3.1 L RPR Titer Nonreactive Labs reviewed: plt 115, serum glucose 150, alk phos 173 Assessment: 02/10/19 16:24 Withdrawal sxs Noted with thrombocytopenia, hyperglycemia and elevated alkaline phosphatase Plan: Continue detox Encouraged PO water hydration Thrombocytopenia: could be r/t chronic alcoholism, follow up with PCP for monitoring, educated on abstaining from alcohol consumption and all illicit substances Hyperglycemia: denies dm, could be r/t withdrawal, repeat fasting serum glucose and send HbA1c to rule out DM Elevated alkaline phosphatase: could be r/t hip injury, repeat alkaline phosphatase level
[2019-02-10] MEDS: METHOCARBAMOL 500 MG TABLET PO PRN (17:46)
[2019-02-10] MEDS: THIAMINE HCL 100 MG TABLET (FP) PO SCH (21:39)
[2019-02-10] MEDS: MELATONIN 5 MG TABLETS PO PRN (21:39)
[2019-02-11] MEDS ORDERED: chlordiazePOXIDE HCL 10 MG CAPSULE PO PRN
[2019-02-11] MEDS: ACETAMINOPHEN 325 MG TABLET (FP) PO PRN (02:50)
[2019-02-11] MEDS ORDERED: chlordiazePOXIDE HCL 10 MG CAPSULE PO SCH (05:00)
[2019-02-11] MEDS: FERROUS SO4 325 MG TABLET (FP) PO SCH (05:43)
[2019-02-11] MEDS ORDERED: METHADONE HCL 5 MG TABLET (FOR DETOX USE ONLY) PO ONE (06:00)
[2019-02-11] MEDS: METHOCARBAMOL 500 MG TABLET PO PRN (06:22)
[2019-02-11 07:15] VITALS: BP 96/55; PULSE 81; TEMP 97.2
[2019-02-11] MEDS: NICOTINE POLACRILEX 2 MG GUM BUC PRN (07:19)
[2019-02-11 10:08] LABS: ALK PHOS 170 U/L (45-117); GLUCOSE,FASTING 283 mg/dL (74-106)
--- NOTE | 2019-02-11 10:11 | DS ---
[facility] Detox Discharge Summary Admission Date: 02/08/19 Discharge Date: 02/11/19 - History Present History: Alcohol Dependence, Opioid Dependence - Physical Exam Results Vital Signs: Vital Signs Temperature 97.2 F L 02/11/19 07:14 Pulse Rate 81 02/11/19 07:14 Respiratory Rate 18 02/11/19 07:14 Blood Pressure 96/55 L 02/11/19 07:14 O2 Sat by Pulse Oximetry (%) Pertinent Admission Physical Exam Findings: pt arrived in withdrawals Vital Signs Temperature 97.2 F L 02/11/19 07:14 Pulse Rate 81 02/11/19 07:14 Respiratory Rate 18 02/11/19 07:14 Blood Pressure 96/55 L 02/11/19 07:14 O2 Sat by Pulse Oximetry (%) Laboratory Tests 02/09/19 02/09/19 02/09/19 08:00 08:00 08:00 WBC 5.1 RBC 3.86 Hgb 12.0 Hct 36.0 D MCV 93.1 MCH 31.2 D MCHC 33.5 RDW 20.1 H Plt Count 115 L MPV 10.3 D Sodium 138 Potassium 3.5 Chloride 101 Carbon Dioxide 30 Anion Gap 7 L BUN 8.1 Creatinine 0.6 Est GFR (CKD-EPI)AfAm 117.27 Est GFR (CKD-EPI)NonAf 101.18 Random Glucose 150 H Fasting Glucose Hemoglobin A1c % Calcium 9.0 Total Bilirubin 0.7 AST 66 H ALT 42 Alkaline Phosphatase 173 H Total Protein 8.2 Albumin 3.1 L RPR Titer Nonreactive 02/11/19 02/11/19 08:00 08:00 WBC RBC Hgb Hct MCV MCH MCHC RDW Plt Count MPV Sodium Potassium Chloride Carbon Dioxide Anion Gap BUN Creatinine Est GFR (CKD-EPI)AfAm Est GFR (CKD-EPI)NonAf Random Glucose Fasting Glucose 283 H Hemoglobin A1c % 6.2 Calcium Total Bilirubin AST ALT Alkaline Phosphatase 170 H Total Protein Albumin RPR Titer pt is aaox3 ambulating with walker with steady gait no s/s of withdrawals - Treatment Hospital Course: Detox Protocol Followed, Detoxed Safely, Responded well, Discharged Condition Good, Rehab Referral Accepted Patient has Accepted a Rehab Referral to: pt declined rehab; referral provided - Medication Discharge Medications: Ambulatory Orders Cyclobenzaprine HCl 10 mg PO BID 02/08/19 Ferrous Sulfate [Feosol] 325 mg PO TID 02/08/19 - Diagnosis (1) Alcohol dependence with uncomplicated withdrawal Current Visit: Yes Status: Chronic (2) Opioid dependence with withdrawal Current Visit: Yes Status: Chronic (3) Iron deficiency anemia Current Visit: Yes Status: Chronic (4) Neuropathy Current Visit: Yes Status: Chronic (5) Nicotine dependence Current Visit: Yes Status: Chronic Qualifiers: Nicotine product type: cigarettes Substance use status: uncomplicated Qualified Code(s): F17.210 - Nicotine dependence, cigarettes, uncomplicated (6) Opioid dependence on agonist therapy Current Visit: Yes Status: Chronic (7) Osteoarthritis Current Visit: Yes Status: Chronic (8) Osteoporosis Current Visit: Yes Status: Chronic Qualifiers: Osteoporosis type: unspecified Presence of current pathological fracture: unspecified Qualified Code(s): M81.0 - Age-related osteoporosis without current pathological fracture (9) Unsteady gait Current Visit: Yes Status: Chronic (10) Alopecia Current Visit: No Status: Chronic (11) Muscle cramps Current Visit: No Status: Chronic (12) Breast cancer, right breast Current Visit: No Status: Resolved (13) Status post hip replacement Current Visit: No Status: Resolved Qualifiers: Laterality: left Qualified Code(s): Z96.642 - Presence of left artificial hip joint - AMA Did Patient Leave Against Medical Advice: No
[2019-02-12] MEDS ORDERED: chlordiazePOXIDE HCL 10 MG CAPSULE PO SCH (05:00)
[2019-02-13] MEDS ORDERED: chlordiazePOXIDE HCL 10 MG CAPSULE PO ONE (05:00)
== END 2019-02-11 09:10 | disposition home or self-care (01) | DRG 773 ==
LOC: YASAS 15:26 → Y6N 21:00
PROVIDERS: ADMIT Allergy & Immunology; ATTEND Allergy & Immunology
PROC: HZ2ZZZZ Detoxification Services for Substance Abuse Treatment (ICD-10-PCS; principal; 2019-02-08)
DX: F11.23 Opioid dependence with withdrawal (principal); F10.230 Alcohol dependence with withdrawal, uncomplicated; F17.210 Nicotine dependence, cigarettes, uncomplicated; F41.9 Anxiety disorder, unspecified; G62.9 Polyneuropathy, unspecified; D69.6 Thrombocytopenia, unspecified; D50.9 Iron deficiency anemia, unspecified; B18.2 Chronic viral hepatitis C; M18.0 Bilateral primary osteoarthritis of first carpometacarpal joints; M19.90 Unspecified osteoarthritis, unspecified site; R26.81 Unsteadiness on feet; R73.9 Hyperglycemia, unspecified; R74.8 Abnormal levels of other serum enzymes; Z85.3 Personal history of malignant neoplasm of breast; Z99.89 Dependence on other enabling machines and devices
CPT/HCPCS: 36415; 80053; 82947; 83036; 84075; 85027; 86593